=== PATIENT | female | born 1985 | race Caucasian/White ===

== ENCOUNTER 2016-07-28 22:15 | Emergency (ER) | payer BC, OTHER ==
[2016-07-28 22:16] VITALS: BMI 31.3
[2016-07-28 22:44] VITALS: BP 145/75; PULSE 85; RESP 16; TEMP 97.9; O2SAT 100
--- NOTE | 2016-07-28 23:12 | ED PDOC ---
HPI: Female Pain Time Seen by Provider: 07/28/16 22:37 Chief Complaint (Nursing): Female Genitourinary Chief Complaint (Provider): Pain and bleeding History Per: Patient Additional Complaint(s): 31 yo female, no PMH, presents to ED with complaints of abdominal pain and vaginal bleeding since yesterday, 14 weeks . Past Medical History Reviewed: Nursing Documentation, Vital Signs Vital Signs: Last Vital Signs Temp 97.9 F 07/28/16 22:42 Pulse 85 07/28/16 22:42 Resp 16 07/28/16 22:42 BP 145/75 07/28/16 22:42 Pulse Ox 100 07/28/16 22:42 - Medical History PMH: Anemia, HTN Denies: Depression - Surgical History Surgical History: No Surg Hx - Family History Family History: States: Unknown Family Hx - Living Arrangements Living Arrangements: With Family - Social History Current smoker - smoking cessation education provided: No Alcohol: None Drugs: Denies - Immunization History Hx Tetanus Toxoid Vaccination: Yes Hx Influenza Vaccination: Yes Hx Pneumococcal Vaccination: No - Home Medications Home Medications: Ambulatory Orders Medication Instructions Recorded Women's One Daily Multiple 1 tab PO DAILY 11/10/14 Naproxen [Naprosyn] 1 tab PO BID PRN #20 tab 11/03/15 Ibuprofen [Motrin] 600 mg PO Q6 #20 tab 07/29/16 - Allergies Allergies/Adverse Reactions: Allergies Allergy/AdvReac Type Severity Reaction Status Date / Time No Known Allergies Allergy Verified 11/03/15 14:06 Review of Systems ROS Statement: Except As Marked, All Systems Reviewed And Found Negative Gastrointestinal: Positive for: Abdominal Pain Genitourinary Female: Positive for: Vaginal Bleeding Physical Exam - Reviewed Nursing Documentation Reviewed: Yes Vital Signs Reviewed: Yes - Physical Exam Appears: Positive for: Well, Non-toxic, No Acute Distress Head Exam: Positive for: ATRAUMATIC, NORMAL INSPECTION, NORMOCEPHALIC Skin: Positive for: Normal Color, Warm, DRY Eye Exam: Positive for: EOMI, Normal appearance, PERRL ENT: Positive for: Normal ENT Inspection Neck: Positive for: Normal, Painless ROM Cardiovascular/Chest: Positive for: Regular Rate, Rhythm Respiratory: Positive for: CNT, Normal Breath Sounds Gastrointestinal/Abdominal: Positive for: Normal Exam, Bowel Sounds, Soft. Negative for: Tenderness Pelvic Exam: Positive for: Other (pt deferred) Back: Positive for: Normal Inspection Extremity: Positive for: Normal ROM Neurologic/Psych: Positive for: Alert, Oriented - Laboratory Results Result Diagrams: 07/28/16 23:30 - ECG O2 Sat by Pulse Oximetry: 100 Medical Decision Making Medical Decision Making: Dip (+) blood, (-) leuks or nites Blood type O+ Beta: 6216 US COMPARISON: No relevant prior studies available. FINDINGS: Fetus: No intrauterine gestational sac. Cervix: Closed cervix. Adnexa: Ovaries not visualized. No adnexal masses. Free fluid: No significant free fluid. Other findings: Endometrium: 1.1 cm in thickness. IMPRESSION: 1. No intrauterine gestation. DDX: Early IUP, missed , ectopic . 2. Incidental/non-acute findings are described above. Disposition - Clinical Impression Clinical Impression: Missed - Patient ED Disposition Is Patient to be Admitted: No - Disposition Disposition: Routine/Home Disposition Time: 00:00 Condition: GOOD Prescriptions: Ibuprofen [Motrin] 600 mg PO Q6 #20 tab Instructions: Spontaneous Miscarriage (ED) - POA Present On Arrival: None
[2016-07-28 23:43] LABS: BASO # 0.1 K/uL (0.0-0.2); EOS # 0.3 K/uL (0.0-0.7); EOS % 3.5 % (0.0-4.0); HEMATOCRIT 39.2 % (34.0-47.0); LYMPH # 3.1 K/uL (1.0-4.3); LYMPH % 33.4 % (20.0-40.0); MEAN CELL VOLUME 75.4 fl (81.0-99.0); MEAN CORPUSCULAR HEMOGLOBIN 23.7 pg (27.0-31.0); MEAN CORPUSCULAR HGB CONC 31.4 g/dL (33.0-37.0); MEAN PLATELET VOLUME 7.7 fl (7.2-11.7); MONO # 0.7 K/uL (0.0-0.8); MONO % 7.3 % (0.0-10.0); NEUT # 5.1 K/uL (1.8-7.0); NEUT % 54.8 % (50.0-75.0); NRBC % 0.1 % (0.0-0.0); RED CELL DISTRIBUTION WIDTH 14.4 % (11.5-14.5); WHITE BLOOD COUNT 9.2 K/uL (4.8-10.8)
--- NOTE | 2016-07-29 01:48 | US ---
EXAM: US Uterus, Limited. CLINICAL HISTORY: 31 years old, female; Signs and symptoms; Lmp or gestational age (in weeks): 04/23/16; Antepartum complications; Hemorrhage; Additional info: 14 weeks, pain and bleeding TECHNIQUE: Real-time ultrasound of the maternal uterus (limited) with image documentation. COMPARISON: No relevant prior studies available. FINDINGS: Fetus: No intrauterine gestational sac. Cervix: Closed cervix. Adnexa: Ovaries not visualized. No adnexal masses. Free fluid: No significant free fluid. Other findings: Endometrium: 1.1 cm in thickness. IMPRESSION: 1. No intrauterine gestation. DDX: Early IUP, missed , ectopic . 2. Incidental/non-acute findings are described above.
== END 2016-07-29 02:19 | disposition home or self-care (01) ==
LOC: H.ER 22:15
DX: O02.1 Missed abortion (principal)

== ENCOUNTER 2017-05-10 13:21 | Emergency (ER) | payer BC ==
[2017-05-10 13:21] VITALS: BMI 31.3
[2017-05-10 13:52] VITALS: BP 148/84; PULSE 90; RESP 18; TEMP 97.8; O2SAT 99
[2017-05-10] MEDS ORDERED: Sodium Chloride 0.9% 1,000 ML IV STA (14:04)
--- NOTE | 2017-05-10 14:17 | ED PDOC ---
HPI: General Adult Time Seen by Provider: 05/10/17 14:16 Chief Complaint (Nursing): Dizziness/Lightheaded Chief Complaint (Provider): DIZZINESS History Per: Patient (32 Y/O FEMALE 17 WEEKS HERE WITH ROOM SPINNING / DIZZINESS SINCE YESTERDAY. DENIES ANY NAUSEA/VOMITING/DIARRHEA FEVERS/CHILLS. NOTES MILD HEADACHE TODAY. DENIES ANY DIFFICULTY WITH WALKING/WEAKNESS IN UPPER /LOWER EXTREMITIES.) Past Medical History Reviewed: Historical Data, Nursing Documentation, Vital Signs Vital Signs: Last Vital Signs Temp 97.8 F 05/10/17 13:46 Pulse 90 05/10/17 13:46 Resp 18 05/10/17 13:46 BP 148/84 05/10/17 13:46 Pulse Ox 99 05/10/17 14:59 - Medical History PMH: Anemia Denies: Depression, HTN (denies htn) - Family History Family History: States: Unknown Family Hx - Immunization History Hx Tetanus Toxoid Vaccination: Yes Hx Influenza Vaccination: Yes Hx Pneumococcal Vaccination: No - Home Medications Home Medications: Ambulatory Orders Medication Instructions Recorded Women's One Daily Multiple 1 tab PO DAILY 11/10/14 Naproxen [Naprosyn] 1 tab PO BID PRN #20 tab 11/03/15 Ibuprofen [Motrin] 600 mg PO Q6 #20 tab 07/29/16 Nitrofurantoin Macrocrystals 100 mg PO BID #14 cap 05/10/17 [Macrobid] - Allergies Allergies/Adverse Reactions: Allergies Allergy/AdvReac Type Severity Reaction Status Date / Time No Known Allergies Allergy Verified 05/10/17 13:46 Review of Systems ROS Statement: Except As Marked, All Systems Reviewed And Found Negative Physical Exam - Reviewed Nursing Documentation Reviewed: Yes Vital Signs Reviewed: Yes - Physical Exam Appears: Positive for: Well, Non-toxic, No Acute Distress Head Exam: Positive for: ATRAUMATIC, NORMAL INSPECTION, NORMOCEPHALIC Skin: Positive for: Normal Color, Warm, DRY Eye Exam: Positive for: EOMI, Normal appearance, PERRL ENT: Positive for: Normal ENT Inspection Neck: Positive for: Normal, Painless ROM Cardiovascular/Chest: Positive for: Regular Rate, Rhythm Respiratory: Positive for: CNT, Normal Breath Sounds Gastrointestinal/Abdominal: Positive for: Normal Exam, Bowel Sounds, Soft Back: Positive for: Normal Inspection Extremity: Positive for: Normal ROM Neurologic/Psych: Positive for: Alert, Oriented - Laboratory Results Result Diagrams: 05/10/17 14:25 05/10/17 14:25 Urine POC: Negative Urine dip results: Positive for: Leukocyte Esterase (TRACE). Negative for: Blood, Nitrate, Ketones, Glucose, Bilirubin - ECG O2 Sat by Pulse Oximetry: 99 - Progress ED Course And Treament: EKG: NSR 82 BPM NO ECTOPY; NO ACUTE CHANGES REVIEWED BY DR. ROLDAN patient refused REGLAN 10 MG IV X 1 DOSE NS 1 LITER WIDE OPEN UCX SENT. TRACE LEUK NOTED ON UDIP Disposition - Clinical Impression Clinical Impression: Dizziness, UTI (urinary tract infection) - Patient ED Disposition Is Patient to be Admitted: No - Disposition Disposition: Routine/Home Disposition Time: 15:43 Condition: FAIR Prescriptions: Nitrofurantoin Macrocrystals [Macrobid] 100 mg PO BID #14 cap Instructions: Dizziness (ED), Urinary Tract Infection in (ED) Forms: [facility] (Slovak), [facility] ED School/Work Excuse
[2017-05-10 14:31] LABS: BASO # 0.1 K/uL (0.0-0.2); BASO % 0.7 % (0.0-2.0); EOS # 0.2 K/uL (0.0-0.7); EOS % 1.6 % (0.0-4.0); HEMOGLOBIN 11.5 g/dL (12.0-16.0); LYMPH # 2.6 K/uL (1.0-4.3); LYMPH % 23.4 % (20.0-40.0); MEAN CELL VOLUME 72.9 fl (81.0-99.0); MEAN CORPUSCULAR HEMOGLOBIN 22.6 pg (27.0-31.0); MEAN CORPUSCULAR HGB CONC 31.1 g/dL (33.0-37.0); MEAN PLATELET VOLUME 8.2 fl (7.2-11.7); MONO # 0.8 K/uL (0.0-0.8); MONO % 7.2 % (0.0-10.0); NEUT # 7.6 K/uL (1.8-7.0); NEUT % 67.1 % (50.0-75.0); NRBC % 0.1 % (0.0-0.0); RBC 5.06 Mil/uL (3.80-5.20); RED CELL DISTRIBUTION WIDTH 15.8 % (11.5-14.5); WHITE BLOOD COUNT 11.2 K/uL (4.8-10.8)
[2017-05-10 14:44] LABS: ALB/GLOB RATIO 0.9 (1.0-2.1); ALBUMIN 3.8 g/dL (3.5-5.0); ALT/SGPT 31 U/L (9-52); AST/SGOT 22 U/L (14-36); BLOOD UREA NITROGEN 11 mg/dl (7-17); CALCIUM 9.8 mg/dL (8.4-10.2); GFR AFRICAN-AMERICAN > 60; GFR NON-AFRICAN AMERICAN > 60; MAGNESIUM 1.7 MG/DL (1.6-2.3)
--- NOTE | 2017-05-11 11:47 | CARD ---
APPROVED REPORT EKG Measurement Heart [id number] <Conclusion> Normal sinus rhythm Moderate voltage criteria for LVH, may be normal variant Borderline ECG
== END 2017-05-10 16:01 | disposition home or self-care (01) ==
LOC: H.ER 13:21
DX: O23.40 Unspecified infection of urinary tract in pregnancy, unspecified trimester (principal); R42 Dizziness and giddiness
CPT/HCPCS: 80053; 81025; 83735; 85025; 87086; 93005; 99283; J7040

== ENCOUNTER 2017-09-28 05:51 | Inpatient (IN) | payer BC ==
[2017-09-28 06:18] VITALS: BMI 39.0
[2017-09-28] MEDS ORDERED: Lactated Ringer's 1,000 ML IV SCH (06:30)
[2017-09-28] MEDS: Lactated Ringer's 1,000 ML IV SCH ×2 (06:38→07:46)
[2017-09-28 06:59] LABS: BASO # 0.1 K/uL (0.0-0.2); BASO % 0.8 % (0.0-2.0); EOS # 0.1 K/uL (0.0-0.7); EOS % 0.9 % (0.0-4.0); HEMOGLOBIN 10.9 g/dL (12.0-16.0); LYMPH # 2.9 K/uL (1.0-4.3); LYMPH % 28.2 % (20.0-40.0); MEAN CORPUSCULAR HEMOGLOBIN 23.3 pg (27.0-31.0); MEAN CORPUSCULAR HGB CONC 32.4 g/dL (33.0-37.0); MEAN PLATELET VOLUME 8.3 fl (7.2-11.7); MONO # 0.7 K/uL (0.0-0.8); MONO % 7.3 % (0.0-10.0); NEUT # 6.4 K/uL (1.8-7.0); NEUT % 62.8 % (50.0-75.0); NRBC % 0.2 % (0.0-0.0); RBC 4.68 Mil/uL (3.80-5.20); RED CELL DISTRIBUTION WIDTH 16.7 % (11.5-14.5); WHITE BLOOD COUNT 10.2 K/uL (4.8-10.8)
[2017-09-28] MEDS ORDERED: Fentanyl/Bupivacaine HCl 250 ML EPI ONE (07:42)
--- NOTE | 2017-09-28 07:50 | OBADHP ---
Datetime: 09/28/2017 06:20 Admit Comment, IP Provider: 32yo G8P 2051 IUP 38w c/o CTX pain last night and gush of fluid 4am. No VB; +FM Prental care: CP Dr Colon - chart rev'd PMH: denies PSH: denies NKA POBGYNH: TOPx 3 ; Spont ab x 2; x 2 - HPV+ PSOH; denies smoking ETOH drugs A; IUP at 38w SROM/early labor Obesity PLAN: admit to L_D labor, pain management, augmetation methods/meds, delivery and discussed PMD contacted/Dr Garcia covering contacted Abdomen - PN: Normal Back - PN: Normal Breast - PN: Not Done Lungs - PN: Normal Heart - PN: Normal Thyroid - PN: Normal Neurologic - PN: Normal HEENT - PN: Normal General - PN: Normal Presentation-Admit: Vertex FHR - Baseline A Provider: 140 Amniotic Fluid Color, Provider: Clear Membranes, Provider: Ruptured Contraction Comments Provider: irregular Pool Provider: Positive IP Hx Assessment: The History has been Reviewed and is Current Vital Signs Provider: Reviewed; Within Normal Limits IP Chief Complaint: Uterine contractions; Suspected ruptured membranes NICHD Variability Prov Fetus A: Moderate 6-25bpm NICHD Accel Fetus A IP Provider: 10X10 FHR Category Provider Fetus A: Category I NICHD Decel Fetus A IP Provider: None Dilatation, Provider: 3-4 Effacement, Provider: 90 Station, Provider: -2 Genitourinary Exam: Normal IP Adm Impression: Term, intrauterine ; Ruptured Membranes IP Admit Plan: Admit to unit; Initiate labor protocol
[2017-09-28] MEDS ORDERED: Lidocaine 1% 20 MG/2 ML PF AMP ONE ×2 (07:57→07:58)
[2017-09-28] MEDS ORDERED: Oxytocin 30 units/LR 500ML 30 U/500 ML BAG IV ONE (11:45)
--- NOTE | 2017-09-28 13:37 | OBDS ---
MATERNAL INFORMATION Estimated Blood Loss (ml): 250ml Maternal Complications: None LABOR SUMMARY EDC: 10/09/2017 00:00 No. Babies in Womb: 1 Attempted: No Labor Anesthesia: Epidural LABOR INFORMATION Reason for Induction: Not Applicable Onset of Labor: 09/28/2017 04:00 Group B Beta Strep: Negative Steroids Given: None Reason Steroids Not Administered: Not Applicable MEMBRANES Membranes Rupture Method: Spontaneous Rupture of Membranes: 09/28/2017 04:00 Amniotic Fluid Color: Clear Amniotic Fluid Amount: Moderate Amniotic Fluid Odor: Normal VAGINAL DELIVERY Episiotomy: None Laceration Extension: N/A Laceration Type: None Count Comment: correct
[2017-09-28] MEDS ORDERED: Oxycodone/Acetaminophen 5/325 mg Tab PO PRN ×2 (15:37→17:16)
[2017-09-28] MEDS ORDERED: Benzocaine/Menthol SPRAY TOP PRN ×2 (15:37→17:16)
[2017-09-29 07:37] LABS: HEMOGLOBIN 9.2 g/dL (12.0-16.0); MEAN CORPUSCULAR HEMOGLOBIN 23.3 pg (27.0-31.0); MEAN CORPUSCULAR HGB CONC 32.4 g/dL (33.0-37.0); RBC 3.96 Mil/uL (3.80-5.20); RED CELL DISTRIBUTION WIDTH 17.1 % (11.5-14.5)
--- NOTE | 2017-09-29 15:07 | OBPPN ---
Datetime: 09/29/2017 15:02 PP Pain Prov: Within normal limits PP Nausea Prov: Denies PP Flatus Prov: Yes PP BM Prov: No PP Breasts Prov: Normal PP Heart Prov: Normal PP Lungs Prov: Normal PP Abdomen/Uterus Prov: Normal PP Lochia Prov: Normal PP Vulva/Perineum Prov: Normal PP CVA Tenderness Prov: Normal PP Extremities Prov: Normal PP Progress Prov: Normal PP Impression Prov: Normal progression PP Plan Prov: Continue present management PP Progress Note Prov: stable ppd1 continue present care IP PP Procedures: None Vital Signs Provider PP: Reviewed; Within Normal Limits
--- NOTE | 2017-09-30 07:34 | OBPPN ---
Datetime: 09/30/2017 07:29 PP Pain Prov: Within normal limits PP Pain Prov comment: Denies SOB, chest or leg pains PP Nausea Prov: Denies PP Flatus Prov: Yes PP Nausea Prov comment: no headaches visual disturbances PP Flatus Prov comment: no dizziness or weakness PP Breasts Prov: Normal PP Lungs Prov: Normal PP Abdomen/Uterus Prov: Abnormal PP Lochia Prov: Normal PP CVA Tenderness Prov: Normal PP Extremities Prov: Normal PP C/S Incision Prov: Not Applicable PP Progress Prov: Normal PP Comments Phys Exam Prov: breast NE, NT; Abd soft ND fundus firm below the umb NT; Ext no calf ten derness DTR 2+ sym PP Impression Prov: Normal progression PP Plan Prov: Discharge PP Impression Other Prov: anemia PP Progress Note Prov: D/c home with instructions IP PP Procedures: None Vital Signs Provider PP: Within Normal Limits
--- NOTE | 2017-09-30 07:36 | OBDCSUM ---
Datetime: 09/30/2017 07:32 Discharged to, Provider: Home Follow up at, Provider: Dr Colon Disch Instr Activity: Bedrest; May be up to bathroom; May be up for meals; May Shower Disch Instr Diet: Regular Discharge Instructions, Provider: Routine instructions given Discharge Diagnosis, Provider: Term Delivered Discharge Time: 09/30/2017 07:32 Follow up in weeks, Provider: 4-6 wks Disch Referrals: None Contraception discussed, Prov: Yes Disch Activity Restrictions: No exercising; No lifting; No driving; Minimize walking; Minimize stair -climbing; No sexual activity; Nothing in vagina - Onycha, tampons, douche Discharge Comment, Provider: Continue PNC vit and iron Instructions given Discharge Diagnosis Prov Other: anemia Contraception after Delivery: Undecided
[2017-09-30 11:27] VITALS: RESP 20
[2017-09-30 18:33] VITALS: BP 128/70; PULSE 79; TEMP 98.2; O2SAT 100
== END 2017-09-30 12:50 | disposition home or self-care (01) | DRG 775 ==
LOC: H.EROB2 05:51 → H.L&D 06:26 → H.OB/GYN 17:00
PROVIDERS: ADMIT Specialist; ATTEND Specialist
PROC: 10E0XZZ Delivery of Products of Conception, External Approach (ICD-10-PCS; principal; 2017-09-28)
PROC: 4A1HXCZ Monitoring of Products of Conception, Cardiac Rate, External Approach (ICD-10-PCS; 2017-09-28)
DX: O99.214 Obesity complicating childbirth (principal); O90.81 Anemia of the puerperium; D64.9 Anemia, unspecified; Z37.0 Single live birth; Z3A.38 38 weeks gestation of pregnancy